=== PATIENT | female | born 1960 | race Caucasian/White ===

== ENCOUNTER 2016-10-25 05:26 | Emergency (ER) | payer SELFPAY ==
[~2016-10-25] VITALS: Ht 160 cm; Wt 81.8 kg
[2016-10-25] MEDS ORDERED: TraMADol HCL 50 MG TABLET PO ONE (07:00)
[2016-10-25] MEDS ORDERED: KETOROLAC TROMETHAMINE 30 MG/ML VIAL IM ONE (07:00)
[2016-10-25 07:41] VITALS: BP 148/78
== END 2016-10-25 07:56 | disposition home or self-care (01) ==
LOC: EMS 05:28
DX: M54.5 Low back pain (principal)
CPT/HCPCS: 96372; 99283; J1885